=== PATIENT | male | born 2000 | race African-American/Black ===

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

== ENCOUNTER 2023-01-11 20:33 | Emergency (ER) | payer OTHER ==
--- OUTSIDE RECORDS SUMMARY | 2023-01-11 20:36 | XMS REPORT | Continuity of Care Document ---
:2000 Author Organization [facility] t Address [address] [facility]. [address] [place] [address] Care Team Providers Name Role Phone Shanell Betancourt RN Attending Clinician Unavailable Only, Adc Test Attending Clinician Unavailable Meng Butler MD Attending Clinician MENG BUTLER Attending Clinician Unavailable Doctor Unassigned, [place] Attending Clinician Unavailable Lab, Pcp Covid Attending Clinician Unavailable Lab, Adc Fam Pob I Attending Clinician Unavailable Leroy Villalta Attending Clinician LEROY ROGEL Attending Clinician Unavailable Payers Payer Name Policy Type Policy Number Effective Date Expiration Date S ource Problems This patient has no known problems. Allergies, Adverse Reactions, Alerts Allergy Allergy Status Severity Reaction(s) Onset Inactive Treating Comm ents Source Name Type Date Date Clinician NO KNOWN Drug Active Univers ALLERGIE Class ity of [facility] Social History Social Habit Start Date Stop Date Quantity Comments [facility] to [facility]2 Not sure [facility]event) [facility] Smoking Status Start Date Stop Date Source Unknown if ever smoked Universit y [facility] Medications Ordered Filled Start Stop Current Ordering Indication Dosage Frequency Signature Comments Components Source Medication Medication Date Date Medication? Clinician (SIG) Name Name Rosey Learyir 2018-0 Yes Checo 1 tablet Common 04-14 [facility] 00:00: - [facility] [place] Procedure Date / Time Performed Performing Clinician [facility] e ASSIGNMENT OF BENEFITS 2020-07-21 21:11:02 Doctor Unassigned, No [facility] Encounters Start End Encounter Admission Attending Care Care Encounter Source Date/Time Date/Time Type Type Clinicians Facility Department ID 2020-07-23 2020-07-23 Shanell Dang [id number] Univers 00:00:00 00:00:00 (Out) MAHESH [id number] it y of HOSPITAL [id number] Esteban as [id number] [facility] [address] [place] 2020-07-21 2020-07-21 Laboratory Only, [facility] Test [facility] [id number] Univers 15:11:29 15:26:29 Only Meng Butler [place] [id number] ity [id number] [phone] [facility] [address] [place] 2020-07-21 2020-07-21 Outpatient R DANI [facility] [id number] Univers 15:15:00 15:15:00 MENG ity of [facility] 2020-07-21 2020-07-21 Orders Doctor CROW [id number] Univers 00:00:00 00:00:00 Only Unassigned, MAHESH [id number] ity of [place] [facility] [id number] Esteban as [phone] [facility] [address] [place] 2020-04-29 2020-04-29 Letter Lab, [facility] [id number] Univers 00:00:00 00:00:00 (Out) [facility] [id number] it y of [place] [id number] Esteban as Professio [phone] Wi dical nal [address] [place] Office [facility] 2020-04-29 2020-04-29 Telephone Lab, [facility] [id number] Univers 00:00:00 00:00:00 Fam Pob I Health [id number] ity of [place] [id number] Esteban as Professio [phone] Wi dical nal [address] [place] Office Building One 2020-04-23 2020-04-23 Laboratory Lab, [facility] Fam Pob I [facility] [id number] Univers 15:09:41 15:29:41 Only Anene, Leroy Health [id number] ity of [place] [id number] Esteban as Ev[place] [phone] [place] [address] Branch Office [address] One 2020-04-23 2020-04-23 Outpatient Choco ROGEL [facility] [id number] Univers 15:20:00 15:20:00 LEROY fayeshannan [facility] 2020-02-22 2020-02-22 Outpatient Olga Espinozat [id number] Common 13:52:00 13:52:[address] [facility] 2018-04-14 2018-04-14 Outpatient [place]violet [place] [id number] Common 09:00:00 09:00:[address] [facility] 2018-01-04 2018-01-04 Outpatient Olga [place] [id number] Common 13:15:00 13:15:[address] [facility] Results This patient has no known results.
[2023-01-11] MEDS ORDERED: IBUPROFEN 400 MG TAB ONE (21:31)
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
[2023-01-11 23:07] VITALS: TEMP 98.2
[2023-01-11 23:10] VITALS: BP 122/76; O2SAT 98
== END 2023-01-11 22:42 | disposition home or self-care (01) ==
LOC: ER 20:33
DX: M25.531 Pain in right wrist (principal); M79.641 Pain in right hand; V47.5XXA Car driver injured in collision with fixed or stationary object in traffic accident, initial encounter
CPT/HCPCS: 99284